=== PATIENT | female | born 1980 | race Caucasian/White ===

== ENCOUNTER → 2017-04-07 15:56 | Outpatient (CLI) | payer BC ==
[2013-07-31 07:21] VITALS: BMI 28.3
== END | disposition home or self-care (01) ==
LOC: D.MRI 15:56
DX: M54.2 Cervicalgia (principal)

== ENCOUNTER → 2017-04-14 14:16 | Outpatient (CLI) | payer BC ==
[2013-07-31 07:21] VITALS: BMI 28.3
== END | disposition home or self-care (01) ==
LOC: D.CT 14:16
DX: G54.2 Cervical root disorders, not elsewhere classified (principal); M54.2 Cervicalgia

== ENCOUNTER 2018-02-23 05:20 | Day surgery (SDC) | payer BC ==
[2018-02-22 11:44] LABS: HEMATOCRIT 39.9 % (36.0-48.0); HEMOGLOBIN 14.2 g/dL (12-16); MCH 30.3 pg (26.0-34.0); MCHC 35.6 g/dL (31.0-37.0); MCV 85.1 fL (80.0-100.0); MEAN PLATELET VOLUME 9.9 fL (7.4-10.4); RBC 4.69 10x6/uL (4.00-5.40); RDW 12.6 % (11.5-14.5); WBC 10.3 10x3/uL (4.8-10.8)
[2018-02-23] VITALS (8 sets, daily range): BP systolic 111–126; BP diastolic 58–76; Ht 165.1 cm; Wt 85.9 kg
[~2018-02-23] VITALS: Ht 165.1 cm; Wt 85.9 kg
--- NOTE | ~2018-02-23 | OP ---
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 PROCEDURE: Artificial disc replacement at C5-C6 with Mobi-C from [facility]. SURGEON: Francisco Garcia MD DESCRIPTION OF TECHNIQUE: After induction of general endotracheal anesthesia, the patient was positioned supine on the operating table. Neck was placed in neutral position. The C5-C6 interspace was identified with fluoroscopic x-ray and freer. A transverse skin incision was carried out from the midline to the sternocleidomastoid muscle. The platysma was divided with Bovie cautery. Using blunt and sharp dissection with Metzenbaum scissors, I proceeded in avascular plane medial to the carotid sheath. The C5-C6 interspace was identified with fluoroscopic x-ray and spinal needle. The longus colli muscles were elevated from bodies of C5 and C6. No bone work was carried out anteriorly. A self-retaining retractor was placed deep to the longus colli muscles. [place] distracting pins were placed by the C5 and C6. The annulus was incised with a #11 blade. Pituitary rongeurs and curettes were used to remove the disc material and prepare the bony endplates. Posteriorly, there was an obvious hole in the posterior longitudinal ligament. The posterior longitudinal ligament was removed with Cloward rongeurs. There was an obvious disc herniation within the foramen at C5-C6 on the left, was removed as well. The dura was decompressed on both sides. Next, a 15-mm wide Mobi-C anterior cervical disc replacement was placed in the disc space under fluoroscopic guidance. The [place] pins were relaxed and there was good position of the hardware on AP and lateral fluoroscopy. Next, the [place] pins were removed. The bony edges were waxed with bone wax. Meticulous hemostasis was maintained throughout the wound. The wound was irrigated with copious amounts of Ancef irrigant solution. The platysma and subdermal layer were closed with interrupted 3-0 Vicryl suture. The skin was reapproximated with Steri-Strips and benzoin. Prineo dressing was applied to skin for reapproximation. A sterile dressing was applied on the wound. The patient was awakened in good condition and taken to recovery. All counts were reported as correct. Estimated blood loss was minimal. TRANSINT:[id number] Voice Confirmation ID: [id number] DOCUMENT ID: [id number] OPERATIVE REPORT [id number] ANTOINE JUSTICE JOHN MD at 1304 CC: [id number] DICTATION DATE: 02/23/18 1044 [employer] DECORATOR: 02/23/18 1235 [id number] [place] [id number]
[~2018-02-23 05:20] MED LIST: LISINOPRIL5 MG PO
[2018-02-23 06:21] LABS: HCG URINE NEGATIVE (NEGATIVE)
[2018-02-24 05:48] VITALS: BP 100/48
[2018-02-24 08:17] VITALS: BP 139/87
[2018-02-24] MEDS ORDERED: MEDROL DOSE PACK4 MG PO (11:50)
[2018-02-24] MEDS ORDERED: ROBAXIN500 MG PO (11:50)
[2018-02-24] MEDS ORDERED: NORCO 10-325 TA1 TAB PO (11:51)
== END 2018-02-24 12:36 | disposition home or self-care (01) ==
LOC: D.OPS 05:20 → D.MS 05:20 → D.PAN 07:30 → D.OPS 07:30 → D.MS 11:34 → D.OPS 02-24 12:36
PROVIDERS: Anesthesiology; Neurological Surgery
DX: M50.122 Cervical disc disorder at C5-C6 level with radiculopathy (principal); M25.78 Osteophyte, vertebrae; Z01.812 Encounter for preprocedural laboratory examination

== ENCOUNTER → 2018-10-02 17:11 | Outpatient (CLI) | payer BC ==
[2018-02-23 12:08] VITALS: BMI 31.5
[~2018-10-02 17:11] MED LIST changes: +MEDROL DOSE PACK4 MG PO; +NORCO 10-325 TA1 TAB PO; +ROBAXIN500 MG PO
== END | disposition home or self-care (01) ==
LOC: D.LABREF 17:11
PROVIDERS: ATTEND Urology
DX: D72.829 Elevated white blood cell count, unspecified (principal); R31.0 Gross hematuria

== ENCOUNTER 2019-09-24 19:00 | Outpatient (CLI) | payer BC ==
[2018-02-23 12:08] VITALS: BMI 31.5
== END 2019-09-24 23:59 | disposition home or self-care (01) ==
LOC: D.MAMMO 19:00
PROVIDERS: ATTEND Student in an Organized Health Care Education/Training Program
DX: N64.4 Mastodynia (principal)